=== PATIENT | female | born 1970 | race Caucasian/White ===

== ENCOUNTER 2017-10-12 10:45 | Day surgery (SDC) | payer BC ==
[~2017-10-12] VITALS: Ht 170.2 cm; Wt 74.8 kg
[~2017-10-12 10:45] MED LIST: ATIVAN1 MG PO; BUSPAR10 MG PO; NAPROXEN500 MG PO; NEURONTIN300 MG PO; TRAMADOL HCL50 MG PO; ZANAFLEX2 M1 PO; ZOLOFT100 MG PO
== END 2017-10-12 13:05 | disposition home or self-care (01) ==
LOC: PAIN 10:45 → SDC 11:45 → PAIN 11:45
DX: M53.3 Sacrococcygeal disorders, not elsewhere classified (principal); M46.1 Sacroiliitis, not elsewhere classified; M54.5 Low back pain; G89.29 Other chronic pain; M54.16 Radiculopathy, lumbar region; M70.72 Other bursitis of hip, left hip; F41.9 Anxiety disorder, unspecified; Z79.891 Long term (current) use of opiate analgesic
CPT/HCPCS: J1030; J1100; J2250; J3010; S0020

== ENCOUNTER 2017-11-05 10:46 | Day surgery (SDC) | payer BC | END 2017-11-05 12:12 | disposition home or self-care (01) | LOC: PAIN 10:46 → SDC 11:15 → PAIN 11:15 | DX: M54.16 Radiculopathy, lumbar region (principal); M54.5 Low back pain; M47.816 Spondylosis without myelopathy or radiculopathy, lumbar region; G89.29 Other chronic pain; M53.3 Sacrococcygeal disorders, not elsewhere classified; M70.72 Other bursitis of hip, left hip; Z79.891 Long term (current) use of opiate analgesic; F41.9 Anxiety disorder, unspecified | CPT/HCPCS: J1100 ==